=== PATIENT | female | born 1965 | race Caucasian/White ===

== ENCOUNTER 2021-01-13 14:33 | Inpatient (IN) | payer OTHER ==
[2021-01-13] MEDS ORDERED: TRIMETHOBENZAMIDE HCL 200MG/2ML INJ IM ONE ×3 (16:20→19:05)
[2021-01-13] MEDS ORDERED: NICOTINE 10 MG CARTRIDGE (INHALER) IH PRN (16:36)
[2021-01-13] MEDS ORDERED: MAGNESIUM CITRATE 300 ML BOTTLE PO PRN (16:36)
[2021-01-13] MEDS ORDERED: MENTHOL/PHENOL 1 EACH UD MM PRN (16:36)
[2021-01-13] MEDS ORDERED: diazePAM 5 MG TABLET PO PRN (16:36)
[2021-01-13] MEDS ORDERED: methaDONE HCL 10 MG TABLET (FOR DETOX USE ONLY) PO ONE (16:36)
[2021-01-13] MEDS ORDERED: cloNIDine HCL 0.1 MG TABLET PO PRN (16:36)
[2021-01-13] MEDS ORDERED: IBUPROFEN 400 MG TABLET (FP) PO PRN (16:36)
[2021-01-13] MEDS ORDERED: BISMUTH SUBSALICYLATE 524 MG/30 ML PO PRN (16:36)
[2021-01-13] MEDS ORDERED: ACETAMINOPHEN 325 MG TABLET (FP) PO PRN (16:36)
[2021-01-13] MEDS ORDERED: MAGNESIUM HYDROX 2400MG/30ML ORAL SUSPENSION 30 ML CUP PO PRN (16:36)
[2021-01-13] MEDS ORDERED: MAG HYDROX/AL HYDROX/SIMETH 30 ML UNIT-DOSE CUP PO PRN (16:36)
[2021-01-13] MEDS ORDERED: LORazepam 2 MG/ML SDV VIAL ONE (16:54)
[2021-01-13 18:17] VITALS: BMI 18.8
[2021-01-13] MEDS: diazePAM 5 MG TABLET PO SCH ×2 (19:56→23:34)
[2021-01-13] MEDS: ACETAMINOPHEN 325 MG TABLET (FP) PO PRN (23:35)
[2021-01-13] MEDS: MELATONIN 5 MG TABLETS PO SCH (23:42)
[2021-01-13] MEDS: THIAMINE HCL 100 MG TABLET (FP) PO SCH (23:42)
[2021-01-14] MEDS: diazePAM 5 MG TABLET PO SCH ×4 (05:59→22:04)
[2021-01-14] MEDS: METHOCARBAMOL 500 MG TABLET PO PRN (08:06)
[2021-01-14] MEDS ORDERED: methaDONE HCL 10 MG TABLET (FOR DETOX USE ONLY) ONE (09:19)
[2021-01-14] MEDS: PRENATAL VITAMINS W/ FOLIC ACID TABLET (FP) PO SCH (11:06)
[2021-01-14] MEDS ORDERED: CHLORHEXIDINE GLUCONATE 0.12% 15ML CUP MM SCH (11:15)
[2021-01-14] MEDS ORDERED: FLUCONAZOLE 100 MG TABLET (UD) PO ONE ×2 (11:29)
[2021-01-14 11:53] LABS: HEMATOCRIT 35.8 % (32.4-45.2); HEMOGLOBIN 11.9 GM/dL (10.7-15.3); MCH 29.1 pg (25.7-33.7); MCHC 33.3 g/dl (32.0-36.0); MEAN CELL VOLUME 87.4 fl (80-96); MEAN PLT VOLUME 8.8 fl (7.5-11.1); PLATELET COUNT 325 10^3/uL (134-434); RBC 4.09 M/mm3 (3.60-5.2); RDW 13.1 % (11.6-15.6); WHITE BLOOD COUNT 11.5 K/mm3 (4.0-10.0)
[2021-01-14 12:10] LABS: ALBUMIN 3.1 g/dl (3.4-5.0); CALCIUM 8.8 mg/dL (8.5-10.1)
[2021-01-14 12:13] LABS: CREATININE 0.8 mg/dL (0.55-1.3)
[2021-01-14 12:14] LABS: TOT PROT 8.1 g/dl (6.4-8.2)
[2021-01-14 12:16] LABS: BILIRUBIN,TOTAL 0.7 mg/dL (0.2-1)
[2021-01-14] MEDS ORDERED: FLU VACC QS2021-22(6MOS UP)/PF 60 MCG/0.5 ML SYRINGE IM ONE (13:00)
[2021-01-14] MEDS: NYSTATIN 500,000 UNITS/5 ML SUSPENSION PO SCH ×3 (13:02→22:50)
[2021-01-14] MEDS ORDERED: POTASSIUM CHLORIDE TABS 20 MEQ TABLET.ER (FP) PO ONE (16:57)
[2021-01-14] MEDS: MELATONIN 5 MG TABLETS PO SCH (22:05)
[2021-01-14] MEDS: THIAMINE HCL 100 MG TABLET (FP) PO SCH (22:05)
[2021-01-15] MEDS: diazePAM 5 MG TABLET PO SCH ×3 (05:48→22:11)
[2021-01-15] MEDS: NYSTATIN 500,000 UNITS/5 ML SUSPENSION PO SCH ×4 (05:50→23:06)
[2021-01-15] MEDS ORDERED: methaDONE HCL 10 MG TABLET (FOR DETOX USE ONLY) PO ONE (10:00)
[2021-01-15] MEDS: METHOCARBAMOL 500 MG TABLET PO PRN ×2 (10:36→22:10)
[2021-01-15] MEDS: PRENATAL VITAMINS W/ FOLIC ACID TABLET (FP) PO SCH (10:36)
[2021-01-15] MEDS ORDERED: POTASSIUM CHLORIDE ORAL LIQUID 20 MEQ/15 ML PO ONE ×2 (10:55→14:00)
[2021-01-15 14:16] LABS: HIV INTERPRETATION PRESUMPTIVE POSITIVE (NEGATIVE)
[2021-01-15] MEDS: MELATONIN 5 MG TABLETS PO SCH (22:10)
[2021-01-15] MEDS: THIAMINE HCL 100 MG TABLET (FP) PO SCH (22:11)
[2021-01-16] MEDS: NYSTATIN 500,000 UNITS/5 ML SUSPENSION PO SCH ×4 (06:21→22:38)
[2021-01-16] MEDS: diazePAM 5 MG TABLET PO SCH ×2 (06:21→17:19)
[2021-01-16] MEDS ORDERED: methaDONE HCL 10 MG TABLET (FOR DETOX USE ONLY) ONE (08:51)
[2021-01-16] MEDS: PRENATAL VITAMINS W/ FOLIC ACID TABLET (FP) PO SCH (10:35)
[2021-01-16] MEDS: METHOCARBAMOL 500 MG TABLET PO PRN ×2 (10:35→22:05)
[2021-01-16] MEDS: MELATONIN 5 MG TABLETS PO SCH (22:05)
[2021-01-16] MEDS: THIAMINE HCL 100 MG TABLET (FP) PO SCH (22:05)
[2021-01-17] MEDS ORDERED: diazePAM 5 MG TABLET PO ONE (06:00)
[2021-01-17] MEDS: ACETAMINOPHEN 325 MG TABLET (FP) PO PRN (06:16)
[2021-01-17] MEDS: NYSTATIN 500,000 UNITS/5 ML SUSPENSION PO SCH ×2 (06:17→10:47)
[2021-01-17] MEDS: PRENATAL VITAMINS W/ FOLIC ACID TABLET (FP) PO SCH (09:59)
[2021-01-17] MEDS ORDERED: methaDONE HCL 10 MG TABLET (FOR DETOX USE ONLY) PO ONE (10:00)
[2021-01-17] MEDS: METHOCARBAMOL 500 MG TABLET PO PRN (10:01)
[2021-01-17 13:53] VITALS: BP 111/50; PULSE 85; TEMP 97.3
== END 2021-01-17 14:04 | disposition other institution (70) | DRG 773 ==
LOC: YASAS 14:33 → Y6N 16:58
PROVIDERS: ADMIT Allergy & Immunology; ATTEND Allergy & Immunology
PROC: HZ2ZZZZ Detoxification Services for Substance Abuse Treatment (ICD-10-PCS; principal; 2021-01-13)
DX: F11.23 Opioid dependence with withdrawal (principal); F10.230 Alcohol dependence with withdrawal, uncomplicated; F14.20 Cocaine dependence, uncomplicated; R79.89 Other specified abnormal findings of blood chemistry; B37.0 Candidal stomatitis; Z86.19 Personal history of other infectious and parasitic diseases; Z72.51 High risk heterosexual behavior
CPT/HCPCS: 36415; 80053; 82962; 84132; 85027; 86593; 86780; 87389; 90686; C9803; G0008; U0003; U0005

== ENCOUNTER 2021-01-17 15:12 | Inpatient (IN) | payer OTHER ==
[2021-01-17] MEDS ORDERED: guaiFENesin 200 MG/10 ML 10 ML UNIT-DOSE CUPS PO PRN (16:21)
[2021-01-17] MEDS ORDERED: LOPERAMIDE HCL 2 MG CAPSULE PO PRN (16:21)
[2021-01-17] MEDS ORDERED: MAGNESIUM HYDROX 2400MG/30ML ORAL SUSPENSION 30 ML CUP PO PRN (16:21)
[2021-01-17] MEDS ORDERED: P-EPHED 60MG/TRIPROLIDI 2.5MG TABLET PO PRN (16:21)
[2021-01-17] MEDS ORDERED: MENTHOL/PHENOL 1 EACH UD MM PRN (16:21)
[2021-01-17] MEDS ORDERED: MAGNESIUM CITRATE 300 ML BOTTLE PO PRN (16:21)
[2021-01-17] MEDS ORDERED: MAG HYDROX/AL HYDROX/SIMETH 30 ML UNIT-DOSE CUP PO PRN (16:21)
[2021-01-17] MEDS ORDERED: NICOTINE 10 MG CARTRIDGE (INHALER) IH PRN (16:21)
[2021-01-17] MEDS ORDERED: IBUPROFEN 400 MG TABLET (FP) PO PRN (16:21)
[2021-01-17] MEDS ORDERED: ACETAMINOPHEN 325 MG TABLET (FP) PO PRN (16:21)
[2021-01-17] MEDS: NYSTATIN 500,000 UNITS/5 ML SUSPENSION PO SCH ×2 (17:35→22:15)
[2021-01-17] MEDS: THIAMINE HCL 100 MG TABLET (FP) PO SCH (21:17)
[2021-01-17] MEDS: MELATONIN 5 MG TABLETS PO SCH (21:17)
[2021-01-17] MEDS: hydrOXYzine PAMOATE 25 MG CAPSULE (FP) PO PRN (21:18)
[2021-01-18] MEDS: NYSTATIN 500,000 UNITS/5 ML SUSPENSION PO SCH ×4 (04:03→22:29)
[2021-01-18] MEDS: PRENATAL VITAMINS W/ FOLIC ACID TABLET (FP) PO SCH (10:10)
[2021-01-18] MEDS: NICOTINE 7 MG/24 HOURS TOPICAL PATCH TD SCH (10:10)
[2021-01-18] MEDS: hydrOXYzine PAMOATE 25 MG CAPSULE (FP) PO PRN (10:12)
[2021-01-18] MEDS: THIAMINE HCL 100 MG TABLET (FP) PO SCH (22:29)
[2021-01-18] MEDS: MELATONIN 5 MG TABLETS PO SCH (22:29)
[2021-01-19] MEDS: NYSTATIN 500,000 UNITS/5 ML SUSPENSION PO SCH ×2 (06:10→10:20)
[2021-01-19 07:20] VITALS: BP 118/81; PULSE 90; TEMP 97.5
[2021-01-19] MEDS: NICOTINE 7 MG/24 HOURS TOPICAL PATCH TD SCH (10:19)
[2021-01-19] MEDS: PRENATAL VITAMINS W/ FOLIC ACID TABLET (FP) PO SCH (10:19)
[2021-01-19] MEDS: hydrOXYzine PAMOATE 25 MG CAPSULE (FP) PO PRN (10:21)
== END 2021-01-19 13:50 | disposition home or self-care (01) | DRG 773 ==
LOC: YASAS 15:12 → Y5N 15:13
PROVIDERS: ADMIT Allergy & Immunology; ATTEND Allergy & Immunology
PROC: HZ2ZZZZ Detoxification Services for Substance Abuse Treatment (ICD-10-PCS; principal; 2021-01-17)
DX: F11.20 Opioid dependence, uncomplicated (principal); F10.20 Alcohol dependence, uncomplicated; F14.20 Cocaine dependence, uncomplicated; Z21 Asymptomatic human immunodeficiency virus [HIV] infection status; Z86.19 Personal history of other infectious and parasitic diseases; Z72.51 High risk heterosexual behavior

== ENCOUNTER 2021-04-15 15:53 | Inpatient (IN) | payer OTHER ==
[2021-04-15] MEDS ORDERED: IBUPROFEN 400 MG TABLET (FP) PO PRN (18:58)
[2021-04-15] MEDS ORDERED: MAG HYDROX/AL HYDROX/SIMETH 30 ML UNIT-DOSE CUP PO PRN (18:58)
[2021-04-15] MEDS ORDERED: ONDANSETRON *ODT* 4 MG TABLET SL PRN (18:58)
[2021-04-15] MEDS ORDERED: MAGNESIUM CITRATE 300 ML BOTTLE PO PRN (18:58)
[2021-04-15] MEDS ORDERED: ACETAMINOPHEN 325 MG TABLET (FP) PO PRN ×2 (18:58)
[2021-04-15] MEDS ORDERED: MAGNESIUM HYDROX 2400MG/30ML ORAL SUSPENSION 30 ML CUP PO PRN (18:58)
[2021-04-15] MEDS ORDERED: MENTHOL/PHENOL 1 EACH UD MM PRN (18:58)
[2021-04-15] MEDS ORDERED: methaDONE HCL 10 MG TABLET (FOR DETOX USE ONLY) PO ONE (19:00)
[2021-04-15] MEDS ORDERED: cloNIDine HCL 0.1 MG TABLET PO PRN (19:00)
[2021-04-15 20:22] VITALS: BMI 18.8
[2021-04-15] MEDS: BISMUTH SUBSALICYLATE 524 MG/30 ML PO PRN (21:43)
[2021-04-15] MEDS: THIAMINE HCL 100 MG TABLET (FP) PO SCH (22:22)
[2021-04-15] MEDS: MELATONIN 5 MG TABLETS PO SCH (22:23)
[2021-04-16] MEDS: diazePAM 5 MG TABLET PO PRN ×3 (03:41→18:21)
[2021-04-16] MEDS: BISMUTH SUBSALICYLATE 524 MG/30 ML PO PRN (06:12)
[2021-04-16] MEDS ORDERED: methaDONE HCL 10 MG TABLET (FOR DETOX USE ONLY) ONE (09:14)
[2021-04-16] MEDS ORDERED: methaDONE HCL 10 MG TABLET (FOR DETOX USE ONLY) PO ONE (10:00)
[2021-04-16 10:37] LABS: HEMATOCRIT 32.9 % (32.4-45.2); HEMOGLOBIN 10.6 GM/dL (10.7-15.3); MCH 27.9 pg (25.7-33.7); MCHC 32.3 g/dl (32.0-36.0); MEAN CELL VOLUME 86.3 fl (80-96); MEAN PLT VOLUME 8.9 fl (7.5-11.1); PLATELET COUNT 340 10^3/uL (134-434); RBC 3.82 M/mm3 (3.60-5.2); RDW 13.1 % (11.6-15.6); WHITE BLOOD COUNT 5.4 K/mm3 (4.0-10.0)
[2021-04-16] MEDS: PRENATAL VITAMINS W/ FOLIC ACID TABLET (FP) PO SCH (10:48)
[2021-04-16] MEDS: METHOCARBAMOL 500 MG TABLET PO PRN ×2 (10:48→22:52)
[2021-04-16] MEDS: hydrOXYzine PAMOATE 25 MG CAPSULE (FP) PO PRN ×3 (10:48→22:52)
[2021-04-16 10:51] LABS: ALBUMIN 2.8 g/dl (3.4-5.0); BLOOD UREA NITROGEN 15.2 mg/dL (7-18); CREATININE 0.8 mg/dL (0.55-1.3)
[2021-04-16 10:52] LABS: CALCIUM 8.6 mg/dL (8.5-10.1)
[2021-04-16 10:53] LABS: BILIRUBIN,TOTAL 0.6 mg/dL (0.2-1); TOT PROT 7.9 g/dl (6.4-8.2)
[2021-04-16] MEDS ORDERED: LOPERAMIDE HCL 2 MG CAPSULE PO ONE (21:41)
[2021-04-16] MEDS: THIAMINE HCL 100 MG TABLET (FP) PO SCH (22:52)
[2021-04-16] MEDS: MELATONIN 5 MG TABLETS PO SCH (22:52)
[2021-04-17] MEDS ORDERED: methaDONE HCL 10 MG TABLET (FOR DETOX USE ONLY) PO ONE (10:00)
[2021-04-17] MEDS: hydrOXYzine PAMOATE 25 MG CAPSULE (FP) PO PRN ×2 (10:44→17:15)
[2021-04-17] MEDS: diazePAM 5 MG TABLET PO PRN ×2 (10:44→22:40)
[2021-04-17] MEDS: METHOCARBAMOL 500 MG TABLET PO PRN (10:44)
[2021-04-17] MEDS: PRENATAL VITAMINS W/ FOLIC ACID TABLET (FP) PO SCH (10:44)
[2021-04-17] MEDS: BISMUTH SUBSALICYLATE 524 MG/30 ML PO PRN (10:57)
[2021-04-17] MEDS ORDERED: POTASSIUM CHLORIDE ORAL LIQUID 20 MEQ/15 ML PO ONE ×2 (16:30→20:30)
[2021-04-17] MEDS: LOPERAMIDE HCL 2 MG CAPSULE PO PRN ×2 (17:16→22:40)
[2021-04-17] MEDS: PHENYLEPHRINE HCL/COCOA BUTTER SUPPOSITORY RC SCH (22:17)
[2021-04-17] MEDS: THIAMINE HCL 100 MG TABLET (FP) PO SCH (22:40)
[2021-04-18] MEDS: MELATONIN 5 MG TABLETS PO SCH (00:16)
[2021-04-18 09:52] VITALS: BP 129/74; PULSE 86; TEMP 97.5
[2021-04-18] MEDS: METHOCARBAMOL 500 MG TABLET PO PRN (10:05)
[2021-04-18] MEDS: hydrOXYzine PAMOATE 25 MG CAPSULE (FP) PO PRN (10:05)
[2021-04-18] MEDS: PHENYLEPHRINE HCL/COCOA BUTTER SUPPOSITORY RC SCH (10:05)
[2021-04-18] MEDS: PRENATAL VITAMINS W/ FOLIC ACID TABLET (FP) PO SCH (10:05)
== END 2021-04-18 12:15 | disposition home or self-care (01) | DRG 773 ==
LOC: YASAS 15:53 → Y6N 21:28
PROVIDERS: ADMIT Allergy & Immunology; ATTEND Allergy & Immunology
PROC: HZ2ZZZZ Detoxification Services for Substance Abuse Treatment (ICD-10-PCS; principal; 2021-04-15)
DX: F11.23 Opioid dependence with withdrawal (principal); F10.20 Alcohol dependence, uncomplicated; F14.20 Cocaine dependence, uncomplicated; Z21 Asymptomatic human immunodeficiency virus [HIV] infection status; E87.6 Hypokalemia; Z86.19 Personal history of other infectious and parasitic diseases
CPT/HCPCS: 36415; 80053; 81025; 82962; 84132; 85027; 86593; 86780; C9803; U0003; U0005

== ENCOUNTER 2022-08-09 09:11 | Inpatient (IN) | payer OTHER ==
[2022-08-09 10:22] VITALS: BMI 15.9
[2022-08-09] MEDS ORDERED: IBUPROFEN 400 MG TABLET (FP) PO PRN (13:37)
[2022-08-09] MEDS ORDERED: NALOXONE HCL 0.4 MG/ML VIAL IM PRN (13:37)
[2022-08-09] MEDS ORDERED: BENZONATATE 200 MG CAPSULE PO PRN (13:37)
[2022-08-09] MEDS ORDERED: ACETAMINOPHEN 325 MG TABLET (FP) PO PRN (13:37)
[2022-08-09] MEDS ORDERED: MAG HYDROX/AL HYDROX/SIMETH 30 ML UNIT-DOSE CUP PO PRN (13:37)
[2022-08-09] MEDS ORDERED: LOPERAMIDE HCL 2 MG CAPSULE PO PRN (13:37)
[2022-08-09] MEDS ORDERED: MAGNESIUM HYDROX 2400MG/30ML ORAL SUSPENSION 30 ML CUP PO PRN (13:37)
[2022-08-09] MEDS ORDERED: guaiFENesin 600 MG TABLET.ER (FP) PO PRN (13:37)
[2022-08-09] MEDS ORDERED: BENZOCAINE/MENTHOL (CHLORASEPTIC ) LOZENGE MM PRN (13:37)
[2022-08-09] MEDS ORDERED: cloNIDine HCL 0.1 MG TABLET PO PRN (13:37)
[2022-08-09] MEDS ORDERED: POLYETHYLENE GLYCOL (HEALTHYLAX) 3350 17 GM PACKET PO PRN (13:37)
[2022-08-09] MEDS ORDERED: NALOXONE HCL (KLOXXADO) 8 MG SPRAY NS PRN (13:37)
[2022-08-09] MEDS ORDERED: IBUPROFEN 600 MG TABLET (FP) PO PRN (13:37)
[2022-08-09] MEDS ORDERED: BISMUTH SUBSALICYLATE 524 MG/30 ML PO PRN (13:37)
[2022-08-09] MEDS ORDERED: methaDONE HCL 10 MG TABLET (FOR DETOX USE ONLY) PO ONE (14:00)
[2022-08-09] MEDS ORDERED: methaDONE HCL 10 MG TABLET (FOR DETOX USE ONLY) ONE (14:06)
[2022-08-09] MEDS: METHOCARBAMOL 500 MG TABLET PO PRN ×2 (14:56→20:44)
[2022-08-09] MEDS: hydrOXYzine PAMOATE 25 MG CAPSULE (FP) PO PRN ×2 (14:56→22:59)
[2022-08-09] MEDS: ONDANSETRON *ODT* 4 MG TABLET SL PRN ×2 (15:02→22:59)
[2022-08-09] MEDS: diazePAM 5 MG TABLET PO PRN (20:44)
[2022-08-09] MEDS: MELATONIN 5 MG TABLETS PO SCH (22:29)
[2022-08-09] MEDS: THIAMINE HCL 100 MG TABLET (FP) PO SCH (22:29)
[2022-08-10 10:00] LABS: HEMATOCRIT 34.4 % (32.4-45.2); HEMOGLOBIN 11.5 GM/dL (10.7-15.3); MCH 29.2 pg (25.7-33.7); MCHC 33.5 g/dl (32.0-36.0); MEAN CELL VOLUME 87.2 fl (80-96); MEAN PLT VOLUME 9.5 fl (7.5-11.1); PLATELET COUNT 302 10^3/uL (134-434); POTASSIUM 3.5 mmol/L (3.5-5.1); RBC 3.94 M/mm3 (3.60-5.2); RDW 12.3 % (11.6-15.6); WHITE BLOOD COUNT 6.2 K/mm3 (4.0-10.0)
[2022-08-10] MEDS: PRENATAL VITAMINS W/ FOLIC ACID TABLET (FP) PO SCH (10:11)
[2022-08-10] MEDS: DICYCLOMINE HCL 10 MG CAPSULE PO PRN (10:12)
[2022-08-10] MEDS: METHOCARBAMOL 500 MG TABLET PO PRN ×2 (10:13→23:10)
[2022-08-10 10:22] LABS: BLOOD UREA NITROGEN 17.9 mg/dL (7-18)
[2022-08-10 10:23] LABS: ALBUMIN 2.5 g/dl (3.4-5.0); BILIRUBIN,TOTAL 0.4 mg/dL (0.2-1); CALCIUM 8.4 mg/dL (8.5-10.1)
[2022-08-10 10:24] LABS: TOT PROT 6.5 g/dl (6.4-8.2)
[2022-08-10 10:26] LABS: CREATININE 0.6 mg/dL (0.55-1.3)
[2022-08-10] MEDS: diazePAM 5 MG TABLET PO PRN ×3 (12:59→23:10)
[2022-08-10] MEDS: THIAMINE HCL 100 MG TABLET (FP) PO SCH (23:10)
[2022-08-10] MEDS: MELATONIN 5 MG TABLETS PO SCH (23:13)
[2022-08-11] MEDS: diazePAM 5 MG TABLET PO PRN ×2 (05:21→20:22)
[2022-08-11] MEDS ORDERED: methaDONE HCL 10 MG TABLET (FOR DETOX USE ONLY) PO ONE (10:00)
[2022-08-11] MEDS: PRENATAL VITAMINS W/ FOLIC ACID TABLET (FP) PO SCH (10:22)
[2022-08-11] MEDS: hydrOXYzine PAMOATE 25 MG CAPSULE (FP) PO PRN (10:22)
[2022-08-11] MEDS: METHOCARBAMOL 500 MG TABLET PO PRN (10:22)
[2022-08-11] MEDS: MELATONIN 5 MG TABLETS PO SCH (22:23)
[2022-08-11] MEDS: THIAMINE HCL 100 MG TABLET (FP) PO SCH (22:23)
[2022-08-12] MEDS: PRENATAL VITAMINS W/ FOLIC ACID TABLET (FP) PO SCH (10:08)
[2022-08-12] MEDS: METHOCARBAMOL 500 MG TABLET PO PRN ×2 (10:08→18:31)
[2022-08-12] MEDS: hydrOXYzine PAMOATE 25 MG CAPSULE (FP) PO PRN ×3 (10:08→22:16)
[2022-08-12] MEDS: diazePAM 5 MG TABLET PO PRN (13:10)
[2022-08-12] MEDS: THIAMINE HCL 100 MG TABLET (FP) PO SCH (22:15)
[2022-08-12] MEDS: MELATONIN 5 MG TABLETS PO SCH (22:15)
[2022-08-13] MEDS ORDERED: methaDONE HCL 10 MG TABLET (FOR DETOX USE ONLY) PO ONE (10:00)
[2022-08-13] MEDS: PRENATAL VITAMINS W/ FOLIC ACID TABLET (FP) PO SCH (10:19)
[2022-08-13] MEDS: hydrOXYzine PAMOATE 25 MG CAPSULE (FP) PO PRN ×3 (10:21→22:19)
[2022-08-13] MEDS: DICYCLOMINE HCL 10 MG CAPSULE PO PRN (10:21)
[2022-08-13] MEDS: METHOCARBAMOL 500 MG TABLET PO PRN ×2 (10:21→17:07)
[2022-08-13] MEDS: MELATONIN 5 MG TABLETS PO SCH (22:18)
[2022-08-13] MEDS: THIAMINE HCL 100 MG TABLET (FP) PO SCH (22:18)
[2022-08-14 09:38] VITALS: RESP 18
[2022-08-14] MEDS: PRENATAL VITAMINS W/ FOLIC ACID TABLET (FP) PO SCH (10:15)
[2022-08-14 13:04] VITALS: BP 123/72; PULSE 79; TEMP 97.8
== END 2022-08-14 13:25 | disposition other institution (70) | DRG 773 ==
LOC: YASAS 09:11 → Y3N 13:24 → Y6N 14:33
PROVIDERS: ADMIT Allergy & Immunology; ATTEND Surgery
PROC: HZ2ZZZZ Detoxification Services for Substance Abuse Treatment (ICD-10-PCS; principal; 2022-08-09)
DX: F11.23 Opioid dependence with withdrawal (principal); F14.20 Cocaine dependence, uncomplicated; F17.210 Nicotine dependence, cigarettes, uncomplicated; F19.24 Other psychoactive substance dependence with psychoactive substance-induced mood disorder; F51.05 Insomnia due to other mental disorder; B20 Human immunodeficiency virus [HIV] disease; Z62.810 Personal history of physical and sexual abuse in childhood; Z86.19 Personal history of other infectious and parasitic diseases; Z59.00 Homelessness unspecified
CPT/HCPCS: 36415; 80053; 81025; 85027; 86593; 86780; 87811; C9803-CS; Q0162; U0003; U0005

== ENCOUNTER 2022-08-14 13:50 | Inpatient (IN) | payer OTHER ==
[2022-08-14] MEDS ORDERED: POLYETHYLENE GLYCOL (HEALTHYLAX) 3350 17 GM PACKET PO PRN (19:11)
[2022-08-14] MEDS ORDERED: NALOXONE HCL (KLOXXADO) 8 MG SPRAY NS PRN (19:11)
[2022-08-14] MEDS ORDERED: guaiFENesin 600 MG TABLET.ER (FP) PO PRN (19:11)
[2022-08-14] MEDS ORDERED: AMMONIUM LACTATE 12% LOTION 225 GM BOTTLE TP PRN (19:11)
[2022-08-14] MEDS ORDERED: BENZOCAINE/MENTHOL (CHLORASEPTIC ) LOZENGE MM PRN (19:11)
[2022-08-14] MEDS ORDERED: COLLOIDAL OATMEAL 1 BAR EACH TP PRN (19:11)
[2022-08-14] MEDS ORDERED: P-EPHED 60MG/TRIPROLIDI 2.5MG TABLET PO PRN (19:11)
[2022-08-14] MEDS ORDERED: MAGNESIUM HYDROX 2400MG/30ML ORAL SUSPENSION 30 ML CUP PO PRN (19:11)
[2022-08-14] MEDS ORDERED: NALOXONE HCL 0.4 MG/ML VIAL IVPUSH PRN (19:11)
[2022-08-14] MEDS ORDERED: LOPERAMIDE HCL 2 MG CAPSULE PO PRN (19:11)
[2022-08-14] MEDS ORDERED: MAG HYDROX/AL HYDROX/SIMETH 30 ML UNIT-DOSE CUP PO PRN (19:11)
[2022-08-14] MEDS ORDERED: BENZONATATE 200 MG CAPSULE PO PRN (19:11)
[2022-08-14] MEDS: THIAMINE HCL 100 MG TABLET (FP) PO SCH (21:36)
[2022-08-14] MEDS: MELATONIN 5 MG TABLETS PO PRN (21:36)
[2022-08-14] MEDS: IBUPROFEN 600 MG TABLET (FP) PO PRN (22:34)
[2022-08-15] MEDS: PRENATAL VITAMINS W/ FOLIC ACID TABLET (FP) PO SCH (10:39)
[2022-08-15] MEDS: ACETAMINOPHEN 325 MG TABLET (FP) PO PRN ×2 (10:40→15:16)
[2022-08-15] MEDS: METHOCARBAMOL 500 MG TABLET PO PRN (15:15)
[2022-08-15] MEDS: THIAMINE HCL 100 MG TABLET (FP) PO SCH (22:31)
[2022-08-16] MEDS: IBUPROFEN 400 MG TABLET (FP) PO PRN (02:33)
[2022-08-16] MEDS: METHOCARBAMOL 500 MG TABLET PO PRN ×3 (02:33→18:23)
[2022-08-16] MEDS: PRENATAL VITAMINS W/ FOLIC ACID TABLET (FP) PO SCH ×2 (10:21→11:23)
[2022-08-16] MEDS: IBUPROFEN 600 MG TABLET (FP) PO PRN ×2 (11:23→18:23)
[2022-08-16] MEDS: THIAMINE HCL 100 MG TABLET (FP) PO SCH (22:10)
[2022-08-16] MEDS: hydrOXYzine PAMOATE 25 MG CAPSULE (FP) PO PRN (22:10)
[2022-08-16] MEDS: MELATONIN 5 MG TABLETS PO PRN (22:10)
[2022-08-17] MEDS: IBUPROFEN 400 MG TABLET (FP) PO PRN ×2 (06:57→13:10)
[2022-08-17] MEDS: hydrOXYzine PAMOATE 25 MG CAPSULE (FP) PO PRN ×3 (06:58→21:17)
[2022-08-17] MEDS: METHOCARBAMOL 500 MG TABLET PO PRN ×2 (06:58→21:17)
[2022-08-17] MEDS: PRENATAL VITAMINS W/ FOLIC ACID TABLET (FP) PO SCH (09:58)
[2022-08-17] MEDS: IBUPROFEN 600 MG TABLET (FP) PO PRN (16:47)
[2022-08-17] MEDS: SUVOREXANT 10 MG TABLET PO PRN (21:17)
[2022-08-17] MEDS: THIAMINE HCL 100 MG TABLET (FP) PO SCH (21:17)
[2022-08-18] MEDS: PRENATAL VITAMINS W/ FOLIC ACID TABLET (FP) PO SCH (09:36)
[2022-08-18] MEDS: METHOCARBAMOL 500 MG TABLET PO PRN ×2 (09:36→21:09)
[2022-08-18] MEDS: IBUPROFEN 600 MG TABLET (FP) PO PRN (09:36)
[2022-08-18] MEDS: hydrOXYzine PAMOATE 25 MG CAPSULE (FP) PO PRN ×3 (09:36→21:10)
[2022-08-18] MEDS ORDERED: BUPRENORPHINE/NALOXONE 2 MG/0.5 MG FILM PACKET SL ONE (11:38)
[2022-08-18] MEDS: THIAMINE HCL 100 MG TABLET (FP) PO SCH (21:09)
[2022-08-18] MEDS: SUVOREXANT 10 MG TABLET PO PRN (21:17)
[2022-08-19] MEDS: hydrOXYzine PAMOATE 25 MG CAPSULE (FP) PO PRN ×3 (06:56→21:33)
[2022-08-19] MEDS: IBUPROFEN 400 MG TABLET (FP) PO PRN (06:56)
[2022-08-19] MEDS: BUPRENORPHINE/NALOXONE 8 MG/2 MG FILM PACKET SL SCH (09:49)
[2022-08-19] MEDS: PRENATAL VITAMINS W/ FOLIC ACID TABLET (FP) PO SCH (09:49)
[2022-08-19] MEDS: METHOCARBAMOL 500 MG TABLET PO PRN (17:48)
[2022-08-19] MEDS: THIAMINE HCL 100 MG TABLET (FP) PO SCH (21:32)
[2022-08-19] MEDS: SUVOREXANT 10 MG TABLET PO PRN (21:32)
[2022-08-19] MEDS: IBUPROFEN 600 MG TABLET (FP) PO PRN (21:33)
[2022-08-20] MEDS: PRENATAL VITAMINS W/ FOLIC ACID TABLET (FP) PO SCH (09:50)
[2022-08-20] MEDS: BUPRENORPHINE/NALOXONE 8 MG/2 MG FILM PACKET SL SCH (09:50)
[2022-08-20] MEDS: METHOCARBAMOL 500 MG TABLET PO PRN (14:29)
[2022-08-20] MEDS: hydrOXYzine PAMOATE 25 MG CAPSULE (FP) PO PRN (14:29)
[2022-08-20] MEDS: CYPROHEPTADINE HCL 4 MG TABLET PO SCH (17:22)
[2022-08-20] MEDS: THIAMINE HCL 100 MG TABLET (FP) PO SCH (21:34)
[2022-08-20] MEDS: SUVOREXANT 15 MG TABLET PO PRN (21:36)
[2022-08-21] MEDS: CYPROHEPTADINE HCL 4 MG TABLET PO SCH ×3 (06:33→17:15)
[2022-08-21] MEDS: hydrOXYzine PAMOATE 25 MG CAPSULE (FP) PO PRN (06:33)
[2022-08-21] MEDS: IBUPROFEN 600 MG TABLET (FP) PO PRN (06:34)
[2022-08-21 07:25] VITALS: RESP 18
[2022-08-21] MEDS: PRENATAL VITAMINS W/ FOLIC ACID TABLET (FP) PO SCH (09:43)
[2022-08-21] MEDS ORDERED: BUPRENORPHINE/NALOXONE 8 MG/2 MG FILM PACKET SL ONE (09:45)
[2022-08-21] MEDS ORDERED: BUPRENORPHINE/NALOXONE 8 MG/2 MG FILM PACKET SL SCH (10:00)
[2022-08-21] MEDS: BUPRENORPHINE/NALOXONE 8 MG/2 MG FILM PACKET SL SCH (17:27)
[2022-08-21] MEDS: SUVOREXANT 15 MG TABLET PO PRN (21:50)
[2022-08-21] MEDS: THIAMINE HCL 100 MG TABLET (FP) PO SCH (21:51)
[2022-08-21] MEDS: NICOTINE POLACRILEX 2 MG GUM BUC PRN (21:52)
[2022-08-22] MEDS: CYPROHEPTADINE HCL 4 MG TABLET PO SCH ×3 (06:41→17:06)
[2022-08-22] MEDS: BUPRENORPHINE/NALOXONE 8 MG/2 MG FILM PACKET SL SCH ×2 (06:41→17:53)
[2022-08-22] MEDS: NICOTINE POLACRILEX 2 MG GUM BUC PRN ×3 (06:42→16:11)
[2022-08-22] MEDS: PRENATAL VITAMINS W/ FOLIC ACID TABLET (FP) PO SCH (10:20)
[2022-08-22] MEDS: BUPRENORPHINE/NALOXONE 4 MG/1 MG FILM PACKET SL SCH (13:10)
[2022-08-22] MEDS: hydrOXYzine PAMOATE 25 MG CAPSULE (FP) PO PRN (17:06)
[2022-08-22] MEDS: THIAMINE HCL 100 MG TABLET (FP) PO SCH (21:12)
[2022-08-22] MEDS: SUVOREXANT 15 MG TABLET PO PRN (21:14)
[2022-08-23] MEDS: CYPROHEPTADINE HCL 4 MG TABLET PO SCH ×3 (06:38→16:53)
[2022-08-23] MEDS: BUPRENORPHINE/NALOXONE 8 MG/2 MG FILM PACKET SL SCH ×2 (06:38→18:57)
[2022-08-23] MEDS: BUPRENORPHINE/NALOXONE 4 MG/1 MG FILM PACKET SL SCH (10:47)
[2022-08-23] MEDS: SERTRALINE HCL 25 MG TABLET (FP) PO SCH (10:47)
[2022-08-23] MEDS: PRENATAL VITAMINS W/ FOLIC ACID TABLET (FP) PO SCH (10:47)
[2022-08-23] MEDS: NICOTINE POLACRILEX 2 MG GUM BUC PRN ×3 (12:23→21:30)
[2022-08-23] MEDS: hydrOXYzine PAMOATE 25 MG CAPSULE (FP) PO PRN ×2 (16:35→21:29)
[2022-08-23] MEDS: traZODone HCL 50 MG TABLET (FP) PO SCH (21:28)
[2022-08-23] MEDS: THIAMINE HCL 100 MG TABLET (FP) PO SCH (21:28)
[2022-08-24] MEDS: METHOCARBAMOL 500 MG TABLET PO PRN (01:50)
[2022-08-24] MEDS: NICOTINE POLACRILEX 2 MG GUM BUC PRN ×3 (06:42→21:57)
[2022-08-24] MEDS: BUPRENORPHINE/NALOXONE 8 MG/2 MG FILM PACKET SL SCH ×2 (06:42→17:14)
[2022-08-24] MEDS: CYPROHEPTADINE HCL 4 MG TABLET PO SCH ×3 (06:42→17:13)
[2022-08-24] MEDS: PRENATAL VITAMINS W/ FOLIC ACID TABLET (FP) PO SCH (10:13)
[2022-08-24] MEDS: BUPRENORPHINE/NALOXONE 4 MG/1 MG FILM PACKET SL SCH (10:13)
[2022-08-24] MEDS: SERTRALINE HCL 25 MG TABLET (FP) PO SCH (10:14)
[2022-08-24] MEDS: traZODone HCL 50 MG TABLET (FP) PO SCH (21:36)
[2022-08-24] MEDS: THIAMINE HCL 100 MG TABLET (FP) PO SCH (21:36)
[2022-08-25] MEDS: IBUPROFEN 600 MG TABLET (FP) PO PRN (06:25)
[2022-08-25] MEDS: BUPRENORPHINE/NALOXONE 8 MG/2 MG FILM PACKET SL SCH (06:25)
[2022-08-25] MEDS: CYPROHEPTADINE HCL 4 MG TABLET PO SCH ×2 (06:25→12:09)
[2022-08-25 07:24] VITALS: TEMP 97.3
[2022-08-25] MEDS: NICOTINE POLACRILEX 2 MG GUM BUC PRN ×3 (09:04→15:38)
[2022-08-25] MEDS: BUPRENORPHINE/NALOXONE 4 MG/1 MG FILM PACKET SL SCH (09:46)
[2022-08-25] MEDS: PRENATAL VITAMINS W/ FOLIC ACID TABLET (FP) PO SCH (09:47)
[2022-08-25 10:36] VITALS: BP 98/59; PULSE 81
[2022-08-25] MEDS: SERTRALINE HCL 25 MG TABLET (FP) PO SCH (11:13)
[2022-08-25] MEDS ORDERED: BUPRENORPHINE/NALOXONE 8 MG/2 MG FILM PACKET SL SCH (16:00)
== END 2022-08-25 03:55 | disposition left against medical advice (07) | DRG 770 ==
LOC: YASAS 13:50 → Y5N 13:52
PROVIDERS: ADMIT Allergy & Immunology; ATTEND Psychiatry & Neurology Pain Medicine
PROC: HZ42ZZZ Group Counseling for Substance Abuse Treatment, Cognitive-Behavioral (ICD-10-PCS; principal; 2022-08-14)
DX: F11.20 Opioid dependence, uncomplicated (principal); F14.20 Cocaine dependence, uncomplicated; F17.210 Nicotine dependence, cigarettes, uncomplicated; F41.9 Anxiety disorder, unspecified; F32.A Depression, unspecified; Z21 Asymptomatic human immunodeficiency virus [HIV] infection status; G47.00 Insomnia, unspecified; E88.09 Other disorders of plasma-protein metabolism, not elsewhere classified; R63.0 Anorexia; Z68.1 Body mass index [BMI] 19.9 or less, adult; Z86.19 Personal history of other infectious and parasitic diseases; Z56.0 Unemployment, unspecified; Z59.00 Homelessness unspecified
CPT/HCPCS: 36415; 86803; 87522

== ENCOUNTER 2022-09-04 14:38 | Inpatient (IN) | payer OTHER ==
[2022-09-04 15:11] VITALS: BMI 18.3
[2022-09-04] MEDS ORDERED: DICYCLOMINE HCL 10 MG CAPSULE PO PRN (15:31)
[2022-09-04] MEDS ORDERED: MAGNESIUM HYDROX 2400MG/30ML ORAL SUSPENSION 30 ML CUP PO PRN (15:31)
[2022-09-04] MEDS ORDERED: ONDANSETRON *ODT* 4 MG TABLET SL PRN (15:31)
[2022-09-04] MEDS ORDERED: POLYETHYLENE GLYCOL (HEALTHYLAX) 3350 17 GM PACKET PO PRN (15:31)
[2022-09-04] MEDS ORDERED: P-EPHED 60MG/TRIPROLIDI 2.5MG TABLET PO PRN (15:31)
[2022-09-04] MEDS ORDERED: LOPERAMIDE HCL 2 MG CAPSULE PO PRN (15:31)
[2022-09-04] MEDS ORDERED: NICOTINE POLACRILEX 2 MG GUM BUC PRN (15:31)
[2022-09-04] MEDS ORDERED: NALOXONE HCL (KLOXXADO) 8 MG SPRAY NS PRN (15:31)
[2022-09-04] MEDS ORDERED: MAG HYDROX/AL HYDROX/SIMETH 30 ML UNIT-DOSE CUP PO PRN (15:31)
[2022-09-04] MEDS ORDERED: BENZOCAINE/MENTHOL (CHLORASEPTIC ) LOZENGE MM PRN (15:31)
[2022-09-04] MEDS ORDERED: IBUPROFEN 400 MG TABLET (FP) PO PRN (15:31)
[2022-09-04] MEDS ORDERED: guaiFENesin 600 MG TABLET.ER (FP) PO PRN (15:31)
[2022-09-04] MEDS ORDERED: BENZONATATE 200 MG CAPSULE PO PRN (15:31)
[2022-09-04] MEDS ORDERED: ACETAMINOPHEN 325 MG TABLET (FP) PO PRN (15:31)
[2022-09-04] MEDS ORDERED: NICOTINE 10 MG CARTRIDGE (INHALER) IH PRN (15:31)
[2022-09-04] MEDS ORDERED: IBUPROFEN 600 MG TABLET (FP) PO PRN (15:31)
[2022-09-04] MEDS ORDERED: BISMUTH SUBSALICYLATE 524 MG/30 ML PO PRN (15:31)
[2022-09-04] MEDS ORDERED: NALOXONE HCL 0.4 MG/ML VIAL IM PRN (15:31)
[2022-09-04] MEDS ORDERED: cloNIDine HCL 0.1 MG TABLET PO PRN (15:33)
[2022-09-04] MEDS ORDERED: methaDONE HCL 10 MG TABLET (FOR DETOX USE ONLY) PO ONE (16:00)
[2022-09-04] MEDS ORDERED: methaDONE HCL 10 MG TABLET (FOR DETOX USE ONLY) ONE (16:09)
[2022-09-04] MEDS: hydrOXYzine PAMOATE 25 MG CAPSULE (FP) PO PRN (19:10)
[2022-09-04] MEDS ORDERED: MELATONIN 5 MG TABLETS PO SCH (22:00)
[2022-09-04] MEDS: THIAMINE HCL 100 MG TABLET (FP) PO SCH (23:17)
[2022-09-05] MEDS: hydrOXYzine PAMOATE 25 MG CAPSULE (FP) PO PRN ×2 (05:39→12:53)
[2022-09-05] MEDS: PRENATAL VITAMINS W/ FOLIC ACID TABLET (FP) PO SCH (10:45)
[2022-09-05] MEDS: METHOCARBAMOL 500 MG TABLET PO PRN ×2 (10:46→19:36)
[2022-09-05] MEDS: traZODone HCL 50 MG TABLET (FP) PO SCH (22:13)
[2022-09-05] MEDS: THIAMINE HCL 100 MG TABLET (FP) PO SCH (22:13)
[2022-09-06] MEDS ORDERED: methaDONE HCL 10 MG TABLET (FOR DETOX USE ONLY) PO ONE (10:00)
[2022-09-06] MEDS ORDERED: BICTEGRAV/EMTRICIT/TENOFOV (BIKTARVY) 50-200-25 MG TABLET PO ONE (10:00)
[2022-09-06] MEDS ORDERED: BIKTARVY PO SCH (10:00)
[2022-09-06] MEDS: SERTRALINE HCL 25 MG TABLET (FP) PO SCH (10:03)
[2022-09-06] MEDS: PRENATAL VITAMINS W/ FOLIC ACID TABLET (FP) PO SCH (10:03)
[2022-09-06] MEDS: METHOCARBAMOL 500 MG TABLET PO PRN (12:03)
[2022-09-06] MEDS: hydrOXYzine PAMOATE 25 MG CAPSULE (FP) PO PRN (12:03)
[2022-09-06] MEDS: THIAMINE HCL 100 MG TABLET (FP) PO SCH (22:08)
[2022-09-06] MEDS: traZODone HCL 50 MG TABLET (FP) PO SCH (22:09)
[2022-09-07] MEDS: hydrOXYzine PAMOATE 25 MG CAPSULE (FP) PO PRN (05:42)
[2022-09-07] MEDS: METHOCARBAMOL 500 MG TABLET PO PRN (05:42)
[2022-09-07] MEDS ORDERED: BICTEGRAV/EMTRICIT/TENOFOV (BIKTARVY) 50-200-25 MG TABLET PO SCH (08:00)
[2022-09-07 09:04] VITALS: PULSE 76; RESP 18
[2022-09-07] MEDS: PRENATAL VITAMINS W/ FOLIC ACID TABLET (FP) PO SCH (10:29)
[2022-09-07] MEDS: SERTRALINE HCL 25 MG TABLET (FP) PO SCH (10:29)
[2022-09-07 13:24] VITALS: BP 138/79; TEMP 97.1
[2022-09-08] MEDS ORDERED: methaDONE HCL 10 MG TABLET (FOR DETOX USE ONLY) PO ONE (10:00)
== END 2022-09-07 13:33 | disposition other institution (70) | DRG 773 ==
LOC: YASAS 14:38 → Y6N 17:04
PROVIDERS: ADMIT Allergy & Immunology; ATTEND Surgery
PROC: HZ2ZZZZ Detoxification Services for Substance Abuse Treatment (ICD-10-PCS; principal; 2022-09-04)
DX: F11.23 Opioid dependence with withdrawal (principal); F15.20 Other stimulant dependence, uncomplicated; F19.282 Other psychoactive substance dependence with psychoactive substance-induced sleep disorder; F32.A Depression, unspecified; B20 Human immunodeficiency virus [HIV] disease; Z62.810 Personal history of physical and sexual abuse in childhood; R63.4 Abnormal weight loss; Z68.1 Body mass index [BMI] 19.9 or less, adult; Z79.899 Other long term (current) drug therapy; Z87.891 Personal history of nicotine dependence
CPT/HCPCS: 87635; 87811

== ENCOUNTER 2022-09-07 13:41 | Inpatient (IN) | payer OTHER ==
[~2022-09-07 13:41] MED LIST: AMMONIUM LACTATE 12% LOTION 225 GM BOTTLE TP PRN; BENZOCAINE/MENTHOL (CHLORASEPTIC ) LOZENGE MM PRN; BENZONATATE 200 MG CAPSULE PO PRN; IBUPROFEN 400 MG TABLET (FP) PO PRN; LOPERAMIDE HCL 2 MG CAPSULE PO PRN; MAG HYDROX/AL HYDROX/SIMETH 30 ML UNIT-DOSE CUP PO PRN; MAGNESIUM HYDROX 2400MG/30ML ORAL SUSPENSION 30 ML CUP PO PRN; NALOXONE HCL (KLOXXADO) 8 MG SPRAY NS PRN; NALOXONE HCL 0.4 MG/ML VIAL IVPUSH PRN; NICOTINE 10 MG CARTRIDGE (INHALER) IH PRN; NICOTINE POLACRILEX 2 MG GUM BUC PRN; POLYETHYLENE GLYCOL (HEALTHYLAX) 3350 17 GM PACKET PO PRN; guaiFENesin 600 MG TABLET.ER (FP) PO PRN; hydrOXYzine PAMOATE 25 MG CAPSULE (FP) PO PRN
[2022-09-07] MEDS ORDERED: DICYCLOMINE HCL 10 MG CAPSULE PO PRN (14:33)
[2022-09-07] MEDS ORDERED: BISMUTH SUBSALICYLATE 262 MG/15 ML BTL PO PRN (14:33)
[2022-09-07] MEDS ORDERED: ONDANSETRON *ODT* 4 MG TABLET SL PRN ×2 (14:33→14:39)
[2022-09-07] MEDS: traZODone HCL 50 MG TABLET (FP) PO SCH (21:35)
[2022-09-07] MEDS: THIAMINE HCL 100 MG TABLET (FP) PO SCH (21:35)
[2022-09-07] MEDS: METHOCARBAMOL 500 MG TABLET PO PRN (21:35)
[2022-09-07] MEDS: MELATONIN 5 MG TABLETS PO SCH (21:35)
[2022-09-08] MEDS: BICTEGRAV/EMTRICIT/TENOFOV (BIKTARVY) 50-200-25 MG TABLET PO SCH (07:38)
[2022-09-08] MEDS ORDERED: SERTRALINE HCL 25 MG TABLET (FP) PO SCH (10:00)
[2022-09-08] MEDS: PRENATAL VITAMINS W/ FOLIC ACID TABLET (FP) PO SCH (10:15)
[2022-09-08] MEDS: SERTRALINE HCL 50 MG TABLET (FP) PO SCH (10:16)
[2022-09-08] MEDS: ACETAMINOPHEN 325 MG TABLET (FP) PO PRN (10:16)
[2022-09-08] MEDS: METHOCARBAMOL 500 MG TABLET PO PRN (10:17)
[2022-09-08] MEDS: hydrOXYzine PAMOATE 50 MG CAPSULE (FP) PO PRN ×2 (10:17→18:06)
[2022-09-08] MEDS: traZODone HCL 50 MG TABLET (FP) PO SCH (21:40)
[2022-09-08] MEDS: MELATONIN 5 MG TABLETS PO SCH (21:40)
[2022-09-08] MEDS: THIAMINE HCL 100 MG TABLET (FP) PO SCH (21:40)
[2022-09-09] MEDS: SERTRALINE HCL 50 MG TABLET (FP) PO SCH (10:14)
[2022-09-09] MEDS: METHOCARBAMOL 500 MG TABLET PO PRN (10:14)
[2022-09-09] MEDS: hydrOXYzine PAMOATE 50 MG CAPSULE (FP) PO PRN (10:14)
[2022-09-09] MEDS: BICTEGRAV/EMTRICIT/TENOFOV (BIKTARVY) 50-200-25 MG TABLET PO SCH (10:14)
[2022-09-09] MEDS: PRENATAL VITAMINS W/ FOLIC ACID TABLET (FP) PO SCH (10:15)
[2022-09-09] MEDS: ACETAMINOPHEN 325 MG TABLET (FP) PO PRN (10:15)
[2022-09-09 11:31] LABS: POTASSIUM 3.8 mmol/L (3.5-5.1)
[2022-09-09 11:34] LABS: ALBUMIN 2.7 g/dl (3.4-5.0); CALCIUM 8.5 mg/dL (8.5-10.1)
[2022-09-09 11:35] LABS: BLOOD UREA NITROGEN 14.2 mg/dL (7-18)
[2022-09-09 11:37] LABS: CREATININE 0.7 mg/dL (0.55-1.3)
[2022-09-09 11:39] LABS: BILIRUBIN,TOTAL 0.5 mg/dL (0.2-1)
[2022-09-09 11:41] LABS: HEMATOCRIT 31.5 % (32.4-45.2); HEMOGLOBIN 10.4 GM/dL (10.7-15.3); MCH 28.6 pg (25.7-33.7); MEAN CELL VOLUME 86.6 fl (80-96); MEAN PLT VOLUME 9.6 fl (7.5-11.1); PLATELET COUNT 250 10^3/uL (134-434); RBC 3.63 M/mm3 (3.60-5.2); RDW 12.2 % (11.6-15.6); WHITE BLOOD COUNT 5.9 K/mm3 (4.0-10.0)
[2022-09-09] MEDS: CYPROHEPTADINE HCL 4 MG TABLET PO SCH ×2 (12:11→17:05)
[2022-09-09 12:17] LABS: ANISOCYTOSIS 1+; MACROCYTOSIS 0
[2022-09-09] MEDS: MELATONIN 5 MG TABLETS PO SCH (21:15)
[2022-09-09] MEDS: traZODone HCL 50 MG TABLET (FP) PO SCH (21:15)
[2022-09-09] MEDS: THIAMINE HCL 100 MG TABLET (FP) PO SCH (21:15)
[2022-09-09] MEDS: COLLOIDAL OATMEAL 1 BAR EACH TP PRN (21:17)
[2022-09-10] MEDS: CYPROHEPTADINE HCL 4 MG TABLET PO SCH ×3 (07:12→17:06)
[2022-09-10] MEDS: BICTEGRAV/EMTRICIT/TENOFOV (BIKTARVY) 50-200-25 MG TABLET PO SCH (10:34)
[2022-09-10] MEDS: ACETAMINOPHEN 325 MG TABLET (FP) PO PRN (10:34)
[2022-09-10] MEDS: SERTRALINE HCL 50 MG TABLET (FP) PO SCH (10:34)
[2022-09-10] MEDS: PRENATAL VITAMINS W/ FOLIC ACID TABLET (FP) PO SCH (10:34)
[2022-09-10] MEDS: hydrOXYzine PAMOATE 50 MG CAPSULE (FP) PO PRN (14:11)
[2022-09-10] MEDS: METHOCARBAMOL 500 MG TABLET PO PRN (14:12)
[2022-09-10] MEDS: traZODone HCL 50 MG TABLET (FP) PO SCH (21:26)
[2022-09-10] MEDS: MELATONIN 5 MG TABLETS PO SCH (21:26)
[2022-09-10] MEDS: THIAMINE HCL 100 MG TABLET (FP) PO SCH (21:27)
[2022-09-11] MEDS: CYPROHEPTADINE HCL 4 MG TABLET PO SCH ×3 (06:37→16:56)
[2022-09-11] MEDS: BICTEGRAV/EMTRICIT/TENOFOV (BIKTARVY) 50-200-25 MG TABLET PO SCH (10:19)
[2022-09-11] MEDS: SERTRALINE HCL 50 MG TABLET (FP) PO SCH (10:19)
[2022-09-11] MEDS: PRENATAL VITAMINS W/ FOLIC ACID TABLET (FP) PO SCH (10:19)
[2022-09-11] MEDS: METHOCARBAMOL 500 MG TABLET PO PRN ×2 (10:20→21:25)
[2022-09-11] MEDS: hydrOXYzine PAMOATE 50 MG CAPSULE (FP) PO PRN (10:20)
[2022-09-11] MEDS: traZODone HCL 50 MG TABLET (FP) PO SCH (21:25)
[2022-09-11] MEDS: THIAMINE HCL 100 MG TABLET (FP) PO SCH (21:25)
[2022-09-11] MEDS: MELATONIN 5 MG TABLETS PO SCH (21:26)
[2022-09-12] MEDS: CYPROHEPTADINE HCL 4 MG TABLET PO SCH ×3 (07:06→17:01)
[2022-09-12] MEDS: BICTEGRAV/EMTRICIT/TENOFOV (BIKTARVY) 50-200-25 MG TABLET PO SCH (10:00)
[2022-09-12] MEDS: PRENATAL VITAMINS W/ FOLIC ACID TABLET (FP) PO SCH (10:00)
[2022-09-12] MEDS: SERTRALINE HCL 50 MG TABLET (FP) PO SCH (10:01)
[2022-09-12] MEDS: METHOCARBAMOL 500 MG TABLET PO PRN (10:02)
[2022-09-12] MEDS: IBUPROFEN 600 MG TABLET (FP) PO PRN ×2 (10:02→21:31)
[2022-09-12] MEDS: BUPRENORPHINE/NALOXONE 4 MG/1 MG FILM PACKET SL SCH (14:38)
[2022-09-12] MEDS: MELATONIN 5 MG TABLETS PO SCH (21:31)
[2022-09-12] MEDS: THIAMINE HCL 100 MG TABLET (FP) PO SCH (21:31)
[2022-09-12] MEDS: traZODone HCL 50 MG TABLET (FP) PO SCH (21:31)
[2022-09-13] MEDS: CYPROHEPTADINE HCL 4 MG TABLET PO SCH ×3 (06:42→16:41)
[2022-09-13] MEDS: BICTEGRAV/EMTRICIT/TENOFOV (BIKTARVY) 50-200-25 MG TABLET PO SCH (07:07)
[2022-09-13 10:03] VITALS: RESP 18
[2022-09-13] MEDS: PRENATAL VITAMINS W/ FOLIC ACID TABLET (FP) PO SCH (10:04)
[2022-09-13] MEDS: SERTRALINE HCL 50 MG TABLET (FP) PO SCH (10:05)
[2022-09-13] MEDS: BUPRENORPHINE/NALOXONE 4 MG/1 MG FILM PACKET SL SCH (10:05)
[2022-09-13] MEDS: IBUPROFEN 600 MG TABLET (FP) PO PRN (10:06)
[2022-09-13] MEDS ORDERED: BUPRENORPHINE/NALOXONE 4 MG/1 MG FILM PACKET SL ONE (13:00)
[2022-09-13] MEDS: traZODone HCL 50 MG TABLET (FP) PO SCH (21:17)
[2022-09-13] MEDS: THIAMINE HCL 100 MG TABLET (FP) PO SCH (21:17)
[2022-09-13] MEDS: MELATONIN 5 MG TABLETS PO SCH (21:17)
[2022-09-14] MEDS: COLLOIDAL OATMEAL 1 BAR EACH TP PRN (06:27)
[2022-09-14] MEDS: CYPROHEPTADINE HCL 4 MG TABLET PO SCH ×3 (06:28→16:37)
[2022-09-14] MEDS: BICTEGRAV/EMTRICIT/TENOFOV (BIKTARVY) 50-200-25 MG TABLET PO SCH (07:09)
[2022-09-14] MEDS: PRENATAL VITAMINS W/ FOLIC ACID TABLET (FP) PO SCH (10:04)
[2022-09-14] MEDS: BUPRENORPHINE/NALOXONE 8 MG/2 MG FILM PACKET SL SCH (10:04)
[2022-09-14] MEDS: SERTRALINE HCL 50 MG TABLET (FP) PO SCH (10:04)
[2022-09-14] MEDS ORDERED: BUPRENORPHINE/NALOXONE 4 MG/1 MG FILM PACKET SL SCH (18:00)
[2022-09-14] MEDS: MELATONIN 5 MG TABLETS PO SCH (22:11)
[2022-09-14] MEDS: hydrOXYzine PAMOATE 50 MG CAPSULE (FP) PO PRN (22:11)
[2022-09-14] MEDS: THIAMINE HCL 100 MG TABLET (FP) PO SCH (22:11)
[2022-09-14] MEDS: traZODone HCL 50 MG TABLET (FP) PO SCH (22:11)
[2022-09-15] MEDS: CYPROHEPTADINE HCL 4 MG TABLET PO SCH ×3 (06:38→16:50)
[2022-09-15] MEDS: BICTEGRAV/EMTRICIT/TENOFOV (BIKTARVY) 50-200-25 MG TABLET PO SCH (07:05)
[2022-09-15] MEDS: SERTRALINE HCL 50 MG TABLET (FP) PO SCH (09:27)
[2022-09-15] MEDS: PRENATAL VITAMINS W/ FOLIC ACID TABLET (FP) PO SCH (09:27)
[2022-09-15] MEDS: BUPRENORPHINE/NALOXONE 8 MG/2 MG FILM PACKET SL SCH ×2 (09:27→17:18)
[2022-09-15] MEDS: busPIRone HCL 5 MG TABLET PO SCH ×2 (11:48→21:07)
[2022-09-15] MEDS: FERROUS SO4 325 MG TABLET (FP) PO SCH (15:54)
[2022-09-15] MEDS: METHYL SALICYLATE/MENTHOL OINT 30 GM TUBE TP SCH (21:07)
[2022-09-15] MEDS: THIAMINE HCL 100 MG TABLET (FP) PO SCH (21:08)
[2022-09-15] MEDS: traZODone HCL 50 MG TABLET (FP) PO SCH (21:08)
[2022-09-15] MEDS: MELATONIN 5 MG TABLETS PO SCH (21:08)
[2022-09-16] MEDS: CYPROHEPTADINE HCL 4 MG TABLET PO SCH ×3 (06:20→16:31)
[2022-09-16] MEDS: FERROUS SO4 325 MG TABLET (FP) PO SCH (07:15)
[2022-09-16] MEDS: BICTEGRAV/EMTRICIT/TENOFOV (BIKTARVY) 50-200-25 MG TABLET PO SCH (07:16)
[2022-09-16] MEDS: SERTRALINE HCL 50 MG TABLET (FP) PO SCH (09:50)
[2022-09-16] MEDS: PRENATAL VITAMINS W/ FOLIC ACID TABLET (FP) PO SCH (09:50)
[2022-09-16] MEDS: BUPRENORPHINE/NALOXONE 8 MG/2 MG FILM PACKET SL SCH ×2 (09:50→17:31)
[2022-09-16] MEDS: METHYL SALICYLATE/MENTHOL OINT 30 GM TUBE TP SCH ×2 (10:12→21:37)
[2022-09-16] MEDS: busPIRone HCL 5 MG TABLET PO SCH ×2 (11:50→21:37)
[2022-09-16] MEDS: THIAMINE HCL 100 MG TABLET (FP) PO SCH (21:37)
[2022-09-16] MEDS: MELATONIN 5 MG TABLETS PO SCH (21:37)
[2022-09-16] MEDS: traZODone HCL 50 MG TABLET (FP) PO SCH (21:37)
[2022-09-17] MEDS: CYPROHEPTADINE HCL 4 MG TABLET PO SCH ×3 (06:25→16:48)
[2022-09-17] MEDS: BICTEGRAV/EMTRICIT/TENOFOV (BIKTARVY) 50-200-25 MG TABLET PO SCH (07:09)
[2022-09-17] MEDS: FERROUS SO4 325 MG TABLET (FP) PO SCH (07:09)
[2022-09-17] MEDS: busPIRone HCL 5 MG TABLET PO SCH ×2 (09:52→21:19)
[2022-09-17] MEDS: PRENATAL VITAMINS W/ FOLIC ACID TABLET (FP) PO SCH (09:52)
[2022-09-17] MEDS: SERTRALINE HCL 50 MG TABLET (FP) PO SCH (09:52)
[2022-09-17] MEDS: METHYL SALICYLATE/MENTHOL OINT 30 GM TUBE TP SCH ×2 (09:52→21:22)
[2022-09-17] MEDS: BUPRENORPHINE/NALOXONE 8 MG/2 MG FILM PACKET SL SCH (09:52)
[2022-09-17] MEDS: P-EPHED 60MG/TRIPROLIDI 2.5MG TABLET PO PRN ×2 (12:26→21:21)
[2022-09-17] MEDS: MELATONIN 5 MG TABLETS PO SCH (21:19)
[2022-09-17] MEDS: traZODone HCL 50 MG TABLET (FP) PO SCH (21:19)
[2022-09-17] MEDS: THIAMINE HCL 100 MG TABLET (FP) PO SCH (21:19)
[2022-09-17] MEDS: SODIUM CHLORIDE NASAL SPRAY 44 ML BOTTLE NS PRN (21:21)
[2022-09-18] MEDS: CYPROHEPTADINE HCL 4 MG TABLET PO SCH ×3 (06:35→16:46)
[2022-09-18] MEDS: BICTEGRAV/EMTRICIT/TENOFOV (BIKTARVY) 50-200-25 MG TABLET PO SCH (07:08)
[2022-09-18] MEDS: FERROUS SO4 325 MG TABLET (FP) PO SCH (07:08)
[2022-09-18] MEDS ORDERED: BUPRENORPHINE/NALOXONE 8 MG/2 MG FILM PACKET SL SCH (10:00)
[2022-09-18] MEDS: BUPRENORPHINE/NALOXONE 4 MG/1 MG FILM PACKET SL SCH (10:01)
[2022-09-18] MEDS: PRENATAL VITAMINS W/ FOLIC ACID TABLET (FP) PO SCH (10:01)
[2022-09-18] MEDS: busPIRone HCL 5 MG TABLET PO SCH ×2 (10:01→21:11)
[2022-09-18] MEDS: BUPRENORPHINE/NALOXONE 8 MG/2 MG FILM PACKET SL SCH ×2 (10:01→17:57)
[2022-09-18] MEDS: SERTRALINE HCL 50 MG TABLET (FP) PO SCH (10:02)
[2022-09-18] MEDS: SODIUM CHLORIDE NASAL SPRAY 44 ML BOTTLE NS PRN (10:04)
[2022-09-18] MEDS: METHYL SALICYLATE/MENTHOL OINT 30 GM TUBE TP SCH ×2 (10:05→21:11)
[2022-09-18] MEDS: traZODone HCL 50 MG TABLET (FP) PO SCH (21:11)
[2022-09-18] MEDS: MELATONIN 5 MG TABLETS PO SCH (21:11)
[2022-09-18] MEDS: THIAMINE HCL 100 MG TABLET (FP) PO SCH (21:11)
[2022-09-18] MEDS: hydrOXYzine PAMOATE 50 MG CAPSULE (FP) PO PRN (21:12)
[2022-09-19] MEDS: SODIUM CHLORIDE NASAL SPRAY 44 ML BOTTLE NS PRN (06:01)
[2022-09-19] MEDS: P-EPHED 60MG/TRIPROLIDI 2.5MG TABLET PO PRN ×2 (06:01→17:01)
[2022-09-19] MEDS: BICTEGRAV/EMTRICIT/TENOFOV (BIKTARVY) 50-200-25 MG TABLET PO SCH (07:24)
[2022-09-19] MEDS: CYPROHEPTADINE HCL 4 MG TABLET PO SCH ×3 (07:24→16:58)
[2022-09-19] MEDS: FERROUS SO4 325 MG TABLET (FP) PO SCH (07:25)
[2022-09-19] MEDS: PRENATAL VITAMINS W/ FOLIC ACID TABLET (FP) PO SCH (09:43)
[2022-09-19] MEDS: busPIRone HCL 5 MG TABLET PO SCH ×2 (09:43→21:07)
[2022-09-19] MEDS: SERTRALINE HCL 50 MG TABLET (FP) PO SCH (09:43)
[2022-09-19] MEDS: BUPRENORPHINE/NALOXONE 4 MG/1 MG FILM PACKET SL SCH (09:44)
[2022-09-19] MEDS: METHYL SALICYLATE/MENTHOL OINT 30 GM TUBE TP SCH ×2 (09:44→23:53)
[2022-09-19] MEDS: BUPRENORPHINE/NALOXONE 8 MG/2 MG FILM PACKET SL SCH ×2 (09:44→17:43)
[2022-09-19] MEDS: THIAMINE HCL 100 MG TABLET (FP) PO SCH (21:07)
[2022-09-19] MEDS: MELATONIN 5 MG TABLETS PO SCH (21:07)
[2022-09-19] MEDS: traZODone HCL 50 MG TABLET (FP) PO SCH (21:07)
[2022-09-20] MEDS: P-EPHED 60MG/TRIPROLIDI 2.5MG TABLET PO PRN ×4 (03:29→22:20)
[2022-09-20] MEDS: CYPROHEPTADINE HCL 4 MG TABLET PO SCH ×3 (06:22→16:32)
[2022-09-20] MEDS: SODIUM CHLORIDE NASAL SPRAY 44 ML BOTTLE NS PRN (06:37)
[2022-09-20] MEDS: BICTEGRAV/EMTRICIT/TENOFOV (BIKTARVY) 50-200-25 MG TABLET PO SCH (07:10)
[2022-09-20] MEDS: FERROUS SO4 325 MG TABLET (FP) PO SCH (07:10)
[2022-09-20] MEDS: PRENATAL VITAMINS W/ FOLIC ACID TABLET (FP) PO SCH (09:41)
[2022-09-20] MEDS: busPIRone HCL 5 MG TABLET PO SCH ×2 (09:42→21:34)
[2022-09-20] MEDS: SERTRALINE HCL 50 MG TABLET (FP) PO SCH (09:42)
[2022-09-20] MEDS: METHYL SALICYLATE/MENTHOL OINT 30 GM TUBE TP SCH ×2 (09:42→21:57)
[2022-09-20] MEDS: BUPRENORPHINE/NALOXONE 4 MG/1 MG FILM PACKET SL SCH (09:43)
[2022-09-20] MEDS: BUPRENORPHINE/NALOXONE 8 MG/2 MG FILM PACKET SL SCH ×2 (09:43→17:16)
[2022-09-20] MEDS: MELATONIN 5 MG TABLETS PO SCH (21:34)
[2022-09-20] MEDS: traZODone HCL 50 MG TABLET (FP) PO SCH (21:34)
[2022-09-20] MEDS: THIAMINE HCL 100 MG TABLET (FP) PO SCH (21:34)
[2022-09-21] MEDS: P-EPHED 60MG/TRIPROLIDI 2.5MG TABLET PO PRN ×3 (06:19→21:23)
[2022-09-21] MEDS: CYPROHEPTADINE HCL 4 MG TABLET PO SCH ×3 (06:20→16:57)
[2022-09-21] MEDS: FERROUS SO4 325 MG TABLET (FP) PO SCH (07:06)
[2022-09-21] MEDS: BICTEGRAV/EMTRICIT/TENOFOV (BIKTARVY) 50-200-25 MG TABLET PO SCH (07:06)
[2022-09-21] MEDS: PRENATAL VITAMINS W/ FOLIC ACID TABLET (FP) PO SCH (09:43)
[2022-09-21] MEDS: METHYL SALICYLATE/MENTHOL OINT 30 GM TUBE TP SCH ×2 (09:44→21:24)
[2022-09-21] MEDS: busPIRone HCL 5 MG TABLET PO SCH ×2 (09:45→21:22)
[2022-09-21] MEDS: SERTRALINE HCL 50 MG TABLET (FP) PO SCH (09:45)
[2022-09-21] MEDS: BUPRENORPHINE/NALOXONE 8 MG/2 MG FILM PACKET SL SCH ×2 (09:45→19:05)
[2022-09-21] MEDS: BUPRENORPHINE/NALOXONE 4 MG/1 MG FILM PACKET SL SCH (09:45)
[2022-09-21] MEDS: THIAMINE HCL 100 MG TABLET (FP) PO SCH (21:22)
[2022-09-21] MEDS: traZODone HCL 50 MG TABLET (FP) PO SCH (21:22)
[2022-09-21] MEDS: MELATONIN 5 MG TABLETS PO SCH (21:22)
[2022-09-21] MEDS ORDERED: BUPRENORPHINE/NALOXONE 8 MG/2 MG FILM PACKET SL SCH (22:00)
[2022-09-22] MEDS: P-EPHED 60MG/TRIPROLIDI 2.5MG TABLET PO PRN ×3 (05:58→21:25)
[2022-09-22] MEDS: CYPROHEPTADINE HCL 4 MG TABLET PO SCH ×3 (06:00→17:10)
[2022-09-22] MEDS: BICTEGRAV/EMTRICIT/TENOFOV (BIKTARVY) 50-200-25 MG TABLET PO SCH (07:14)
[2022-09-22] MEDS: FERROUS SO4 325 MG TABLET (FP) PO SCH (07:14)
[2022-09-22] MEDS: busPIRone HCL 5 MG TABLET PO SCH ×2 (09:39→21:25)
[2022-09-22] MEDS: SERTRALINE HCL 50 MG TABLET (FP) PO SCH (09:39)
[2022-09-22] MEDS: PRENATAL VITAMINS W/ FOLIC ACID TABLET (FP) PO SCH (09:39)
[2022-09-22] MEDS: BUPRENORPHINE/NALOXONE 12 MG-3 MG SL FILM PACKET SL SCH (09:39)
[2022-09-22] MEDS: METHYL SALICYLATE/MENTHOL OINT 30 GM TUBE TP SCH ×2 (09:41→21:26)
[2022-09-22] MEDS ORDERED: BUPRENORPHINE/NALOXONE 4 MG/1 MG FILM PACKET SL SCH (16:00)
[2022-09-22] MEDS: BUPRENORPHINE/NALOXONE 8 MG/2 MG FILM PACKET SL SCH (17:27)
[2022-09-22] MEDS: THIAMINE HCL 100 MG TABLET (FP) PO SCH (21:25)
[2022-09-22] MEDS: traZODone HCL 50 MG TABLET (FP) PO SCH (21:25)
[2022-09-22] MEDS: MELATONIN 5 MG TABLETS PO SCH (21:25)
[2022-09-23] MEDS: CYPROHEPTADINE HCL 4 MG TABLET PO SCH ×3 (06:33→16:42)
[2022-09-23] MEDS: P-EPHED 60MG/TRIPROLIDI 2.5MG TABLET PO PRN ×2 (06:33→21:33)
[2022-09-23] MEDS: FERROUS SO4 325 MG TABLET (FP) PO SCH (07:08)
[2022-09-23] MEDS: BICTEGRAV/EMTRICIT/TENOFOV (BIKTARVY) 50-200-25 MG TABLET PO SCH (07:08)
[2022-09-23] MEDS ORDERED: SIMETHICONE 80 MG TAB.CHEW (FP) PO PRN (08:33)
[2022-09-23] MEDS: METHYL SALICYLATE/MENTHOL OINT 30 GM TUBE TP SCH ×2 (09:36→21:32)
[2022-09-23] MEDS: PRENATAL VITAMINS W/ FOLIC ACID TABLET (FP) PO SCH (09:36)
[2022-09-23] MEDS: SERTRALINE HCL 50 MG TABLET (FP) PO SCH (09:37)
[2022-09-23] MEDS: BUPRENORPHINE/NALOXONE 12 MG-3 MG SL FILM PACKET SL SCH (09:37)
[2022-09-23] MEDS: busPIRone HCL 5 MG TABLET PO SCH ×2 (09:37→21:32)
[2022-09-23] MEDS: BUPRENORPHINE/NALOXONE 8 MG/2 MG FILM PACKET SL SCH (17:53)
[2022-09-23] MEDS: MELATONIN 5 MG TABLETS PO SCH (21:32)
[2022-09-23] MEDS: THIAMINE HCL 100 MG TABLET (FP) PO SCH (21:32)
[2022-09-23] MEDS: traZODone HCL 50 MG TABLET (FP) PO SCH (21:32)
[2022-09-24] MEDS: P-EPHED 60MG/TRIPROLIDI 2.5MG TABLET PO PRN ×2 (06:13→21:33)
[2022-09-24] MEDS: CYPROHEPTADINE HCL 4 MG TABLET PO SCH ×3 (06:13→17:08)
[2022-09-24] MEDS: FERROUS SO4 325 MG TABLET (FP) PO SCH (07:05)
[2022-09-24] MEDS: BICTEGRAV/EMTRICIT/TENOFOV (BIKTARVY) 50-200-25 MG TABLET PO SCH (07:05)
[2022-09-24 07:54] VITALS: TEMP 97.3
[2022-09-24] MEDS: PRENATAL VITAMINS W/ FOLIC ACID TABLET (FP) PO SCH (09:56)
[2022-09-24] MEDS: METHYL SALICYLATE/MENTHOL OINT 30 GM TUBE TP SCH ×2 (09:56→22:00)
[2022-09-24] MEDS: busPIRone HCL 5 MG TABLET PO SCH ×2 (09:56→21:33)
[2022-09-24] MEDS: BUPRENORPHINE/NALOXONE 12 MG-3 MG SL FILM PACKET SL SCH (09:56)
[2022-09-24] MEDS: SERTRALINE HCL 50 MG TABLET (FP) PO SCH (09:56)
[2022-09-24] MEDS: BUPRENORPHINE/NALOXONE 8 MG/2 MG FILM PACKET SL SCH (17:26)
[2022-09-24] MEDS: THIAMINE HCL 100 MG TABLET (FP) PO SCH (21:33)
[2022-09-24] MEDS: MELATONIN 5 MG TABLETS PO SCH (21:33)
[2022-09-24] MEDS: traZODone HCL 50 MG TABLET (FP) PO SCH (21:33)
[2022-09-25] MEDS: P-EPHED 60MG/TRIPROLIDI 2.5MG TABLET PO PRN (06:26)
[2022-09-25 07:26] VITALS: BP 125/81; PULSE 74
[2022-09-25] MEDS: FERROUS SO4 325 MG TABLET (FP) PO SCH (07:38)
[2022-09-25] MEDS: BICTEGRAV/EMTRICIT/TENOFOV (BIKTARVY) 50-200-25 MG TABLET PO SCH (07:38)
[2022-09-25] MEDS: CYPROHEPTADINE HCL 4 MG TABLET PO SCH (07:38)
[2022-09-25] MEDS: PRENATAL VITAMINS W/ FOLIC ACID TABLET (FP) PO SCH (09:15)
[2022-09-25] MEDS: SERTRALINE HCL 50 MG TABLET (FP) PO SCH (09:15)
[2022-09-25] MEDS: busPIRone HCL 5 MG TABLET PO SCH (09:15)
[2022-09-25] MEDS: BUPRENORPHINE/NALOXONE 12 MG-3 MG SL FILM PACKET SL SCH (09:16)
[2022-09-25] MEDS: METHYL SALICYLATE/MENTHOL OINT 30 GM TUBE TP SCH (09:16)
== END 2022-09-25 09:25 | disposition home or self-care (01) | DRG 772 ==
LOC: YASAS 13:41 → Y5N 13:42
PROVIDERS: ADMIT Allergy & Immunology; ATTEND Surgery
PROC: HZ42ZZZ Group Counseling for Substance Abuse Treatment, Cognitive-Behavioral (ICD-10-PCS; principal; 2022-09-07)
DX: F11.20 Opioid dependence, uncomplicated (principal); F14.20 Cocaine dependence, uncomplicated; F32.A Depression, unspecified; F41.9 Anxiety disorder, unspecified; D64.9 Anemia, unspecified; G47.00 Insomnia, unspecified; Z21 Asymptomatic human immunodeficiency virus [HIV] infection status; R14.3 Flatulence; R63.4 Abnormal weight loss; Z68.1 Body mass index [BMI] 19.9 or less, adult; Z87.891 Personal history of nicotine dependence
CPT/HCPCS: 36415; 80053; 83036; 85025; 86593; 86780; 86803; 87522; 93005; 93010; Q0162